=== PATIENT | male | born 1980 | race Caucasian/White ===

== ENCOUNTER → 2016-12-08 18:28 | Outpatient (CLI) | payer OTHER ==
[2016-12-08 18:56] LABS: HEMOGLOBIN A1C 5.5 % (4.8-6.0)
[2016-12-08 18:58] LABS: CHOL - HDL RATIO 9.5 ratio (2.3-4.9); LDL-HDL RATIO 6.1 ratio (1.5-3.5)
[2016-12-11 04:15] LABS: TESTOSTERONE - FREE 4.4 pg/mL (8.7-25.1); TESTOSTERONE - SERUM 54 ng/dL (264-916)
== END | disposition home or self-care (01) ==
LOC: D.LABREF 18:28
PROVIDERS: Internal Medicine Cardiovascular Disease
DX: I10 Essential (primary) hypertension (principal); E78.5 Hyperlipidemia, unspecified

== ENCOUNTER → 2016-12-24 19:11 | Outpatient (CLI) | payer OTHER ==
[2016-12-24 20:26] LABS: CHOL - HDL RATIO 11.8 ratio (2.3-4.9); LDL-HDL RATIO 6.7 ratio (1.5-3.5); T4 THYROXIN - FREE 0.89 ng/dL (0.76-1.46); T4 THYROXINE 6.6 ug/dL (4.7-13.3); THYROID STIMULATING HORMONE 1.62 uIU/mL (0.36-3.74)
[2016-12-26 07:28] LABS: FOLLICLE STIMULATING HORMONE 0.2 mIU/mL (1.5-12.4); LUTEINIZING HORMONE <0.2 mIU/mL (1.7-8.6); PROLACTIN 8.5 ng/mL (4.0-15.2)
[2016-12-26 21:08] LABS: GROWTH HORMONE <0.1 ng/mL (0.0-10.0)
== END | disposition home or self-care (01) ==
LOC: D.LABREF 19:11
PROVIDERS: Internal Medicine Cardiovascular Disease
DX: I10 Essential (primary) hypertension (principal); E29.1 Testicular hypofunction

== ENCOUNTER → 2016-12-29 08:44 | Outpatient (CLI) | payer OTHER ==
--- NOTE | 2016-12-30 16:42 | EC ---
PATIENT:BEE ARIAS DATE OF SERVICE: 12/29/16 SEX: M MEDICAL RECORD: [id number] DATE OF : [birth year] LOCATION:[facility] AGE OF PATIENT: 36 ADMISSION DATE: 12/29/16 REFERRING PHYSICIAN: INTERPRETING PHYSICIAN: HI ASKEW MD ECHOCARDIOGRAM REPORT ECHO CHARGES 4 ECHO COMPLETE CLINICAL DIAGNOSIS: HTN/PALPITATIONS ECHOCARDIOGRAPHIC MEASUREMENTS (adult normal given) AC root (d.<3.7cm) 3.7 cm LV Septum d (<1.2 cm> 1.4 cm Valve Excursion 2.4 cm LV Septum (systole) 2.1 cm Left Atria (s.<4.0cm> 4.4 cm LVPW d(<1.2cm) 1.3 cm RV (d.<2.3cm) 2.9 cm LVPW (sytole) 2.3 cm LV diastole(<5.6CM) 6.1 cm MV E-F(>70mm/sec) cm LV systole 3.5 cm LVOT Diameter 2.3 cm MV exc.(>10mm) cm Est.ejection fraction (50-75%) % Pericardial Effusion N DOPPLER: LVIT cm/sec A 43.0 cm/sec E 75.0 cm/sec LA cm/sec RVSP 37.4 mmHg LVOT 135 cm/sec AOP1/2T m/s Asc. Ao 141 cm/sec RVOT 61.0 cm/sec RA cm/sec PA 123 cm/sec AV Gradient Peak 8.0 mmHg AV Mean 4.0 mmHg AV Area 3.2 cm MV Gradient Peak 4.0 mmHg MV Mean 1.5 mmHg MV Area cm COMMENTS: Primary Care Nurse Practitioner: Jan NOWAKOE Meat Clerk: 4 Dr. Martinez TAPE# PACS DATE OF SERVICE: 12/29/2016 Echocardiogram FINDINGS: 1. Left ventricular chamber size is within normal limits. Left ventricular systolic function is normal. Overall ejection fraction estimated at 55%. 2. The left atrium is mildly dilated at 4.4 cm. Right atrium and right ventricular chamber sizes are within normal limits. 3. Valvular structures have normal structure and motion. ECHOCARDIOGRAM REPORT [id number] BEE ARIAS 4. Doppler interrogation reveals no significant valvular insufficiency or stenosis and pulmonary systolic pressure is normal estimated at 37 mmHg. 5. No evidence of pericardial effusion or left ventricular thrombus. TRANSINT:[id number] Voice Confirmation ID: [id number] DOCUMENT ID: [id number] HI ASKEW MD at 1642 CC: [id number] DICTATION DATE: 12/30/16 1029 MACHINE PROGRAMMER: 12/30/16 1134 DEP CLI 12/29/16 [place] [id number] [place] [id number]
== END | disposition home or self-care (01) ==
LOC: D.ECHO 08:44
DX: I10 Essential (primary) hypertension (principal); R00.2 Palpitations; G47.33 Obstructive sleep apnea (adult) (pediatric)

== ENCOUNTER → 2017-04-03 08:40 | Outpatient (CLI) | payer OTHER ==
[2017-04-06 11:13] LABS: FOLLICLE STIMULATING HORMONE <0.2 mIU/mL (1.5-12.4); LUTEINIZING HORMONE <0.2 mIU/mL (1.7-8.6)
== END | disposition home or self-care (01) ==
LOC: D.LABREF 08:40
PROVIDERS: Internal Medicine Cardiovascular Disease
DX: E23.0 Hypopituitarism (principal)

== ENCOUNTER → 2017-04-09 07:40 | Outpatient (CLI) | payer OTHER | END | disposition home or self-care (01) | LOC: D.MRI 07:40 | DX: E23.0 Hypopituitarism (principal) ==